=== PATIENT | female | born 1930 | race Caucasian/White ===

== ENCOUNTER 2021-11-05 12:14 | Emergency (ER) | payer OTHER ==
[~2021-11-05] VITALS: Ht 162.6 cm; Wt 40.8 kg
[2021-11-05] MEDS ORDERED: MEMANTINE HCL E14 MG PO (12:34)
[2021-11-05] MEDS ORDERED: ZIPRASIDONE HCL40 MG PO (12:34)
[2021-11-05] MEDS ORDERED: RESTORIL15 MG PO (12:35)
== END 2021-11-05 15:56 | disposition home or self-care (01) ==
LOC: ER 12:14
DX: S09.90XA Unspecified injury of head, initial encounter (principal); S49.91XA Unspecified injury of right shoulder and upper arm, initial encounter; W19.XXXA Unspecified fall, initial encounter; Y93.9 Activity, unspecified; Y92.9 Unspecified place or not applicable